=== PATIENT | female | born 1990 ===

== ENCOUNTER 2017-09-22 11:00 | Emergency (ER) | payer OTHER ==
[2017-09-22 11:41] VITALS: BP 122/79; PULSE 70; RESP 18; TEMP 98; O2SAT 98
--- NOTE | 2017-09-22 13:34 | ED PDOC ---
HPI: Back Time Seen by Provider: 09/22/17 12:33 Chief Complaint (Nursing): Back Pain Chief Complaint (Provider): Lower back pain for 1 week. History Per: Patient History/Exam Limitations: no limitations Onset/Duration Of Symptoms: Days Current Symptoms Are (Timing): Still Present Full Body Front + Back: 1 - Pain Quality Of Discomfort: Dull Severity: Moderate Pain Scale Rating Of: 7 Previous Symptoms: None Associated Symptoms: None Additional Complaint(s): Pt states that she injured her tailbone 1 year ago and has had some back pain since but it normally does not last as long and is not as severe. Pt used bengay at home and did not take any oral medications for symptoms. Pt denies numbness/tingling. Pt denies bladder or bowel incontinence. Past Medical History Reviewed: Historical Data, Nursing Documentation, Vital Signs Vital Signs: Last Vital Signs Temp 98 F 09/22/17 11:38 Pulse 70 09/22/17 11:38 Resp 18 09/22/17 11:38 BP 122/79 09/22/17 11:38 Pulse Ox 98 09/22/17 11:38 - Medical History PMH: No Chronic Diseases - Surgical History Surgical History: No Surg Hx - Family History Family History: States: No Known Family Hx - Living Arrangements Living Arrangements: With Family - Social History Current smoker - smoking cessation education provided: No - Home Medications Home Medications: Ambulatory Orders Medication Instructions Recorded Cyclobenzaprine [Cyclobenzaprine 10 mg PO Q8H #20 tab 09/22/17 HCl] Ibuprofen [Motrin Tab] 800 mg PO Q6H PRN #20 tab 09/22/17 - Allergies Allergies/Adverse Reactions: Allergies Allergy/AdvReac Type Severity Reaction Status Date / Time No Known Allergies Allergy Verified 09/22/17 11:38 Review of Systems ROS Statement: Except As Marked, All Systems Reviewed And Found Negative Constitutional: Negative for: Fever, Chills Musculoskeletal: Positive for: Back Pain Physical Exam - Reviewed Nursing Documentation Reviewed: Yes Vital Signs Reviewed: Yes - Physical Exam Appears: Positive for: Well, Non-toxic, No Acute Distress Head Exam: Positive for: ATRAUMATIC, NORMAL INSPECTION, NORMOCEPHALIC Skin: Positive for: Normal Color, Warm, DRY Eye Exam: Positive for: Normal appearance ENT: Positive for: Normal ENT Inspection Neck: Positive for: Normal, Painless ROM Cardiovascular/Chest: Positive for: Regular Rate, Rhythm Respiratory: Positive for: Normal Breath Sounds. Negative for: Accessory Muscle Use Back: Positive for: Normal Inspection, Vertebral Tenderness Extremity: Positive for: Normal ROM. Negative for: Tenderness Neurologic/Psych: Positive for: Alert, Oriented - ECG O2 Sat by Pulse Oximetry: 98 Pulse Ox Interpretation: Normal Medical Decision Making Medical Decision Making: x-ray normal. Urine without signs of UTI Disposition - Clinical Impression Clinical Impression: Low back pain - Patient ED Disposition Is Patient to be Admitted: No Counseled Patient/Family Regarding: Diagnosis, Need For Followup, Rx Given - Disposition Disposition: Routine/Home Disposition Time: 16:25 Condition: GOOD Prescriptions: Cyclobenzaprine [Cyclobenzaprine HCl] 10 mg PO Q8H #20 tab Ibuprofen [Motrin Tab] 800 mg PO Q6H PRN #20 tab PRN Reason: Pain Instructions: Acute Low Back Pain (ED) Forms: [employer] (Slovak)
--- NOTE | 2017-09-22 14:56 | RAD ---
PROCEDURE: Radiographs of the Lumbar Spine. HISTORY: back pain, no trauma, no change in activities COMPARISON: No prior. FINDINGS: BONES: Normal alignment. No listhesis. No fracture. No destructive bony lesion identified. DISC SPACES: Normal intervertebral disc and vertebral body heights. OTHER FINDINGS: None. IMPRESSION: Unremarkable radiographs of the lumbar spine.
== END 2017-09-22 16:37 | disposition home or self-care (01) ==
LOC: H.ER 11:00
DX: M54.5 Low back pain (principal)